=== PATIENT | male | born 1955 | race Caucasian/White ===

== ENCOUNTER 2018-11-01 13:14 | Inpatient (IN) ==
[2018-11-01] MEDS ORDERED: ZOFRAN IV ONE (13:42)
[2018-11-01] MEDS ORDERED: NS 1,000 ML IV ONE ×2 (13:42→15:52)
[2018-11-01 14:02] LABS: BASO# 0.02 X1000 (0.0-0.2); BASO% 0.2 % (0.0-0.8); EOS# 0.14 X1000 (0.0-0.7); EOS% 1.4 % (0.0-10.0); HEMATOCRIT 40.2 % (42.0-52.0); HEMOGLOBIN 13.3 g/dL (14.0-18.0); IMM GRAN# 0.05 X1000 (0.0-0.04); IMM GRAN% 0.5 % (0.0-0.5); LYMPH# 1.73 X1000 (1.2-3.4); LYMPH% 16.7 % (20.5-51.1); MCH 29.6 PG (27-31); MCHC 33.1 g/dL (33-37); MCV 89.5 FL (81-99); MONO# 0.88 X1000 (0.11-0.59); MONO% 8.5 % (1.7-9.3); MPV 10.7 FL (7.4-10.4); NEUT# 7.54 X1000 (1.4-6.5); NEUT% 72.7 % (42.2-75.2); PLT 195 X1000 (130-400); RBC 4.49 XMIL (4.7-6.1); RDW 16.4 % (11.5-14.5); WBC 10.36 X1000 (4.8-10.8)
[2018-11-01 14:09] LABS: INR 1.15; PROTIME 14.9 Seconds (11.0-16.0)
[2018-11-01 14:10] LABS: PTT 27.9 Seconds (22.3-41.8)
[2018-11-01 14:20] LABS: ALB/GLOB RATIO 2.1; ALBUMIN 4.4 g/dL (3.5-5.0); CALCIUM 8.8 mg/dL (8.8-10.2); CREATININE 2.1 mg/dL (0.7-1.2); POTASSIUM 4.2 mmol/L (3.5-5.1); TOTAL BILIRUBIN 2.38 mg/dL (0.20-1.00); TOTAL PROTEIN 6.5 g/dL (6.3-8.3)
--- NOTE | 2018-11-01 14:55 | Diag Imaging Result Doc PS360 ---
EXAM: CT HEAD/C-SPINE W/O CONTRAST INDICATION: syncope TECHNIQUE: This exam was performed using automated exposure control, adjustment of mA or kV according to patient size, and/or use of iterative reconstruction technique. COMPARISON: None. FINDINGS: Head: There is no definite acute infarct given the limited sensitivity of CT versus MRI. There is no discrete intracranial mass, mass effect, or intracranial hemorrhage. The surrounding soft tissues are essentially unremarkable. The calvaria is intact. C-spine: There are small uncovertebral osteophytes are several levels, probably most significant at C5-6 on the left where there is moderate narrowing of the left neuroforamen. Otherwise, there is no discrete fracture, subluxation, or intrinsic osseous lesion. Review of the surrounding soft tissues reveals a large nodule arising from the left thyroid lobe that extends into the upper mediastinum measuring up to 3.8 x 4.1 cm axially. Consider nonemergent ultrasound follow-up. IMPRESSION: 1.No evidence of acute intracranial pathology. 2.Mild cervical spine degenerative changes as described. No evidence of fracture or other definite acute C-spine injury. 3.Incidental prominent nodule at the lower pole of the left thyroid lobe. Electronically signed by Eriberto Villalobos 11/01/2018 2:52 PM
--- NOTE | 2018-11-01 15:03 | Diag Imaging Result Doc PS360 ---
EXAM: CT MAXILLOFACIAL(SINUS) W/O CO INDICATION: syncope with facial trauma TECHNIQUE: COMPARISON: CT head dated 06/08/2017 FINDINGS: There are a few tiny gas droplets in the soft tissues overlying the nasal bones suggesting an abrasion. There is subtle irregularity involving the right nasal bone and the nasal septum that was not present on the previous head CT from 2018 suggesting subtle fractures. No other facial bone fractures are appreciated. Specifically, the pterygoid plates, orbits, zygomatic arches, and mandible are intact. The mandible is normally located. There is mild mucosal thickening at the floors of maxillary sinuses bilaterally. No intrasinus hemorrhage is identified. The mastoid air cells are clear. IMPRESSION: Suggestion of subtle fractures of the right nasal bone and bony nasal septum with very little displacement. Electronically signed by Eriberto Villalobos 11/01/2018 3:01 PM
--- NOTE | 2018-11-01 15:07 | Diag Imaging Result Doc PS360 ---
EXAM: CHEST-2 VIEWS INDICATION: syncope TECHNIQUE: 2 views COMPARISON: 06/24/2018 FINDINGS: The lungs are grossly clear. There is no discrete pleural fluid collection or pneumothorax. There is stable cardiomegaly. Central vasculature is unremarkable. IMPRESSION: Cardiomegaly but no evidence of acute chest pathology. Electronically signed by Eriberto Villalobos 11/01/2018 3:05 PM
[2018-11-01] MEDS ORDERED: ZOFRAN IV PRN (15:52)
--- NOTE | 2018-11-01 15:52 | PROVIDER DOCUMENTATION ---
This chart was entered by Adry Ga Scribe, acting as scribe for Giovanna Grijalva MD. HPI-General Adult - General Chief Complaint: Syncope Stated Complaint: FALL, SYNCOPE Time Seen by Provider: 11/01/18 13:17 Source: patient, family (sister), EMS Allergies/Adverse Reactions: Patient Allergies Allergy/AdvReac Type Severity Reaction Status Date / Time No Known Allergies Allergy Verified 11/01/18 13:23 Home Medications: Home Medication List Medication Instructions Recorded Confirmed Last Taken Type Metformin HCl [Metformin HCl ER] 500 mg PO BID 02/27/16 11/01/18 11/01/18 History Metoprolol Succinate E.r. [Toprol 50 mg PO QAM 02/27/16 11/01/18 11/01/18 History Xl] Insulin Glargine [Lantus] 30 unit SUBQ QAM 03/30/16 11/01/18 11/01/18 History Acetaminophen [Tylenol] 650 mg PO Q6H PRN PRN tablet 06/12/17 11/01/18 2 Months Ago Rx ~08/31/18 Amlodipine [Norvasc] 10 mg PO BID tablet 04/11/18 11/01/18 Unknown Rx Dicyclomine [Bentyl] 10 mg PO TID AC 11/01/18 11/01/18 11/01/18 History Furosemide [Lasix] 20 mg PO DAILY 11/01/18 11/01/18 11/01/18 History Glipizide 5 mg PO QAM 11/01/18 11/01/18 11/01/18 History Meloxicam [Mobic] 15 mg PO QAM 11/01/18 11/01/18 11/01/18 History Naproxen [Naprosyn] 500 mg PO BID 11/01/18 11/01/18 11/01/18 History Quetiapine Fumarate 25 mg PO QHS 11/01/18 11/01/18 1 Day Ago History ~10/31/18 Ranitidine [Zantac] 150 mg PO BID 11/01/18 11/01/18 11/01/18 History Spironolactone 25 mg PO QAM 11/01/18 11/01/18 11/01/18 History - History of Present Illness -Gen Adult Nature of Presenting Problems: 63 yowm presents to the ed via ems after syncopal episode at home falling and hitting his face on the floor. pt has abrasions noted to bridge of nose. per ems when aos pt had BP systolic 62 and had ekg changes in route to hospital. pt sts prior to sycope he had chest pain about 0900am and just before syncope pt was diaphoretic. pt is in c-collar on exam placed by ems pt after exam had episode of n/v Location of Pain/Injury: reports: face (nose) Pain Radiation: reports: no radiation Quality of Pain: reports: aching Severity: reports: mild Onset/Duration: reports: just prior to arrival Timing: reports: improving Context/Activities at Onset: reports: light activity Modifying Factors: worse with: palpation Associated Symptoms: reports: diaphoresis, EENT symptoms (abrasion noted to bridge of nose), nausea, syncope, vomiting. denies: back/neck pain, chest pain, cough, headaches, shortness of breath, weakness Similar Symptoms Previously?: No Recently seen or treated by another doctor?: No Review of Systems - Adult - REVIEW OF SYSTEMS - ADULT Constitutional: denies: chills, fever Eyes: reports: no symptoms reported Ears, Nose, Mouth & Throat: reports: see HPI, nose pain Cardiovascular: reports: see HPI, chest pain, syncope Respiratory: denies: cough, shortness of breath, wheezing Gastrointestinal: reports: see HPI, nausea, vomiting Genitourinary: reports: no symptoms reported Musculoskeletal: denies: back pain, neck pain Integumentary: reports: no symptoms reported Neurological: reports: syncope. denies: dizziness/vertigo, headache/migraines, tremors Psychiatric: reports: no symptoms reported Endocrine: reports: no symptoms reported Hematologic/Lymphatic: reports: no symptoms reported Allergic/Immunologic: reports: no symptoms reported All Other Systems: Reviewed and Negative Past History - Adult - PAST MEDICAL HISTORY-ADULT Review of Records: reports: Old Records Reviewed, Nursing Assessment Review, Medications Reviewed, Social history reviewed & non-contributory. Major Childhood Illnesses: reports: denies history Cardiovascular: reports: CHF, HTN, hyperlipidemia Respiratory: reports: denies history Gastrointestinal: reports: denies history Genitourinary: reports: denies history Musculoskeletal: reports: denies history Hand Dominance: Right Handed Neurological: reports: denies history Psychiatric: reports: denies history Endocrine/Immune: reports: Diabetes Other Conditions: reports: denies history - PRIOR SURGERIES/PROCEDURES Surgical/Procedure History: reports: orthopedic (extremity) - IMMUNIZATION STATUS Childhood Immunizations: See Nurse Assessment Flu Vaccine: See Nurse Assessment - FAMILY HISTORY Family History: reviewed, not pertinent - SOCIAL HISTORY Smoking: denies Substance Use: denies Living Situation: family Physical Exam-General - PHYSICAL EXAM-ADULT Initial Vital Signs Reviewed: Yes - CONSTITUTIONAL General Appearance: alert, mild distress, obese - EYES Eyes: PERRL/EOMI, pink conjunctivae - HEAD, EARS, NOSE, MOUTH & THROAT HENMT: moist mucous membranes, dental decay, other (nose pain with abrasion noted to bridge of nose) - NECK Neck: normal inspection, other (in c-collar) - RESPIRATORY Respiratory: chest non-tender, lungs clear, normal breath sounds - CARDIOVASCULAR Cardiovascular: normal peripheral pulses, regular rate, rhythm - GASTROINTESTINAL (ABDOMEN) Abdominal Exam: normal bowel sounds, non tender, soft - MUSCULOSKELETAL Back Exam: normal inspection, no CVA tenderness, no vertebral tenderness Extremity: normal range of motion, normal capillary refill, pelvis stable - SKIN Integumentary: normal color, normal turgor, warm/dry - NEUROLOGIC Neurologic: grossly normal - PSYCHIATRIC Psych/Mental Status: normal mood/affect, normal thought content, normal thought process, oriented x 3 Progress - PLAN OF CARE/RESULTS Progress/Plan/Lab Results: Vital Signs - 8 hr 11/01/18 13:16 Temperature 97.6 F Pulse Rate 96 H Respiratory Rate 18 Blood Pressure 136/86 O2 Sat by Pulse Oximetry 97 Laboratory Results - last 24 hr 11/01/18 13:28 POC Glucose 80 D Result Diagrams: 11/01/18 13:25 11/01/18 13:25 - REASSESSMENT Reassessment #1 Time Reassessed: 15:01 (dr grijalva at bedside) Status: improving Reassessment Comment: heart score 4 - EKG 1 Time of EKG reading by physician:: 13:16 EKG Read and Signed by:: Giovanna Grijalva EKG Interpretation (*Must complete 3 of following elements*): Abnormal Rate: 96 Rhythm: nsr [place]: normal MA Interval: normal ST Wave: normal Prior EKG Comparison: unchanged from prior (06/2017) Comments: nonspoecific intravenetricular block - XRAY 1 XRAY: Bilateral XRAY Study: Chest Impression: See EMR Report (EXAM: CHEST-2 VIEWS INDICATION: syncope TECHNIQUE: 2 views COMPARISON: 06/24/2018 FINDINGS: The lungs are grossly clear. There is no discrete pleural fluid collection or pneumothorax. There is stable cardiomegaly. Central vasculature is unremarkable. IMPRESSION: Cardiomegaly but no evidence of acute chest pathology. Electronically signed by Eriberto Villalobos 11/01/2018 3:05 PM 11/01/18 1505 Interpreting Physician: Eriberto Villalobos MD Dictated Date/Time: 11/01/18 1504 cc: Giovanna Grijalva MD; Terrance Conroy MD) - CT/MRI 1 CT Study: Cervical Spine, Head Impression: See EMR Report (EXAM: CT HEAD/C-SPINE W/O CONTRAST INDICATION: syncope TECHNIQUE: This exam was performed using automated exposure control, adjustment of mA or kV according to patient size, and/or use of iterative reconstruction technique. COMPARISON: None. FINDINGS: Head: There is no definite acute infarct given the limited sensitivity of CT versus MRI. There is no discrete intracranial mass, mass effect, or intracranial hemorrhage. The surrounding soft tissues are essentially unremarkable. The calvaria is intact. C-spine: There are small uncovertebral osteophytes are several levels, probably most significant at C5-6 on the left where there is moderate narrowing of the left neuroforamen. Otherwise, there is no discrete fracture, subluxation, or intrinsic osseous lesion. Review of the surrounding soft tissues reveals a large nodule arising from the left thyroid lobe that extends into the upper mediastinum measuring up to 3.8 x 4.1 cm axially. Consider nonemergent ultrasound follow-up. IMPRESSION: 1.No evidence of acute intracranial pathology. 2.Mild cervical spine degenerative changes as described. No evidence of fracture or other definite acute C-spine injury. 3.Incidental prominent nodule at the lower pole of the left thyroid lobe. Electronically signed by Eriberto Villalobos 11/01/2018 2:52 PM 11/01/18 1452 Interpreting Physician: Eriberto Fulton MD Dictated Date/Time: 11/01/18 1444 cc: Giovanna Grijalva MD; Terrance Conroy MD) 2 CT Study: Facial Bones Impression: See EMR Report (EXAM: CT MAXILLOFACIAL(SINUS) W/O CO INDICATION: syncope with facial trauma TECHNIQUE: COMPARISON: CT head dated 06/08/2017 FINDINGS: There are a few tiny gas droplets in the soft tissues overlying the nasal bones suggesting an abrasion. There is subtle irregularity involving the right nasal bone and the nasal septum that was not present on the previous head CT from 2018 suggesting subtle fractures. No other facial bone fractures are appreciated. Specifically, the pterygoid plates, orbits, zygomatic arches, and mandible are intact. The mandible is normally located. There is mild mucosal thickening at the floors of maxillary sinuses bilaterally. No intrasinus hemorrhage is identified. The mastoid air cells are clear. IMPRESSION: Suggestion of subtle fractures of the right nasal bone and bony nasal septum with very little displacement. Electronically signed by Eriberto Villalobos 11/01/2018 3:01 PM 11/01/18 1501 Interpreting Physician: Eriberto Villalobos MD Dictated Date/Time: 11/01/18 8898 cc: Giovanna Grijalva MD; Terrance Conroy MD) - CONSULTS/PCP/HOSPITALIST Notification #1 *Consult/PCP/Hospitalist*: dr hinton construction project manager for dr conroy Time Discussed: 15:47 Consult Disposition: Admit Departure - Departure Date of Disposition Decision: 11/01/18 Time of Disposition Decision: 15:45 DIAGNOSIS: Syncope Qualifiers: Syncope type: unspecified Qualified Code(s): R55 - Syncope and collapse Nasal fracture Qualifiers: Encounter type: initial encounter Fracture type: closed Qualified Code(s): S02.2XXA - Fracture of nasal bones, initial encounter for closed fracture Disposition: ADMITTED INPATIENT 09 Certified Medical Emergency: Emergent Condition: Stable Referrals and Follow-Ups: Terrance Conroy MD [Primary Care Provider] - - Critical Care Note This patient required my direct & personal management of CC.: No Attestation - Physician/ [place] Attestation Patient care was provided by Advanced Practice Provider:: No The physician spent face to face time with patient:: Yes Advanced Practice Provider documentation review:: Supervising physician onsite and consulted in the evaluation and care of this patient. The physician did have a face to face encounter with the patient. This chart was documented by the olaf scribe, (Adry Ga Scribe) and accurately reflects the services I performed and decisions made by me, Giovanna Grijalva MD, as attested by the provider's signature.
[2018-11-01] MEDS: NS 1,000 ML IV SCH (16:44)
--- NOTE | 2018-11-01 17:03 | HISTORY AND PHYSICAL ---
CHIEF COMPLAINT: Recurrent syncope second episode since 3 weeks ago. HISTORY OF PRESENT ILLNESS: This is a 63-year-old, disabled, white, male patient of Dr. Christine who came in second time with syncope at his friend's house. Brought in by ambulance. En route his blood pressure was 60. This is the second episode. He had a head injury. Emergency room workup was reviewed. He had a nasal bone fracture. Denies any headache or any focal symptoms. He was admitted 3 weeks ago in [facility]. The details were not known. Dr. Christine has requested the reports. He was basically admitted to the hospital with recurrent syncope. The patient was also here on 04/11/2018 for diverticulitis and history of congestive heart failure with echocardiography reported on 03/10/2018 with global hypokinesis with severe reduction of EF 10 percent to 15 percent. At this time his workup was not clear about ischemic heart disease. Cardiology consult was obtained. Per EKG on 04/11/2018, he has a left bundle branch block. Anyhow, for all these reasons he has been hospitalized. PAST MEDICAL HISTORY: 1. Congestive heart failure due to severe systolic dysfunction, etiology to be determined. 2. Left bundle branch block. 3. Diverticulosis. 4. Hypertension. 5. Type 2 diabetes. 6. Borderline mentally retarded. 7. Acid reflux disease. 8. History of gout. PAST SURGICAL HISTORY: Right knee surgery and jaw surgery when he was a kid. MEDICATIONS: Metformin 500 p.o. b.i.d., metoprolol 50 in the morning, Lantus 30 units subq in the morning, amlodipine 10 p.o. b.i.d., Lasix 20 daily, glipizide 5 in the morning, Mobic 15 in the morning, naproxen 500 p.o. b.i.d., quetiapine 25 at bedtime, Aldactone 25 daily, and Zantac 150 p.o. b.i.d. ALLERGIES: Not known. SOCIAL HISTORY: He is . One kid. Lives in [place]. No smoking. No alcohol. FAMILY HISTORY: Noncontributory. REVIEW OF SYSTEMS: HEENT: No headache. No vision problem. Injury to the nose. No neck pain. Cardiopulmonary: No chest pain. No shortness of breath, PND, orthopnea. Gastrointestinal: No nausea, vomiting, abdominal pain. GENITOURINARY: No history of hesitancy, frequency, dysuria. No BPH symptoms. Musculoskeletal: No swelling of legs. No joint pain. Neurologic: No focal symptoms or weakness. PHYSICAL EXAMINATION: VITAL SIGNS: His hemodynamics are stable. He is tachycardic. Temperature is 97.6 degrees. HEENT: Atraumatic, normocephalic. Pupils equal and reactive to light. He had a bandage applied for the nose. Tongue is in midline. NECK: Supple. No lymphadenopathy. CHEST: Bilateral air entry. Distant heart sounds. Tachycardic. ABDOMEN: Belly is soft, nontender. No masses palpable. MUSCULOSKELETAL: No peripheral edema or cyanosis. NEUROLOGIC: No obvious neurological deficits noted. INVESTIGATIONS: CBC: White cell count 10, hematocrit 40, platelets 195,000. PT 14, INR 1.1. Sodium 142, potassium 4.2, BUN 35, creatinine 2.1, bilirubin 2.3. Cardiac enzymes were normal. Maxillofacial CT: A subtle fracture of the right nasal bone. CT of the head and cervical spine: No evidence of acute intracranial pathology and mild DJD changes noted. Incidental prominent nodule left lower pole of left thyroid. ASSESSMENT AND PLAN: This is a 63-year-old white male admitted to the hospital with recurrent syncope x2, hypotensive, and with abnormal EKG with a left bundle with chronic systolic heart failure with ejection fraction 10 percent. PLAN: 1. Rule out cardiac arrhythmias. He probably needs inset insert loop monitor or 30-day loop monitor to rule out cardiac arrhythmias. Cardiology consult for Dr. Montaño. I do not know his workup for ischemic heart disease. 2. We will get the reports from [place]. 3. Carotid Dopplers. 4. For chronic kidney insufficiency with creatinine 2.1, we will give gentle hydration 50 mL/h in light of CHF. 5. For orthostatic blood pressure, bladder scan. 6. For type 2 diabetes on insulin with sliding scale with insulin coverage. 7. In light of chronic kidney disease I am going to stop his NSAIDS and Metformin. 8. Since the blood pressure is low, we will continue to hold on the blood pressure medicines. Discussed with the family at bedside, and we will get the reports from [facility] and closely monitor in telemetry. cc: Kaushik Capellan MD
[2018-11-01] MEDS ORDERED: HUMULIN R SUBQ SCH (21:00)
[2018-11-02 06:41] LABS: BASO# 0.01 X1000 (0.0-0.2); BASO% 0.1 % (0.0-0.8); EOS# 0.14 X1000 (0.0-0.7); EOS% 1.4 % (0.0-10.0); HEMATOCRIT 35.4 % (42.0-52.0); HEMOGLOBIN 11.7 g/dL (14.0-18.0); IMM GRAN# 0.03 X1000 (0.0-0.04); IMM GRAN% 0.3 % (0.0-0.5); LYMPH% 20.1 % (20.5-51.1); MCH 29.8 PG (27-31); MCHC 33.1 g/dL (33-37); MCV 90.1 FL (81-99); MONO# 0.87 X1000 (0.11-0.59); MONO% 8.7 % (1.7-9.3); MPV 10.7 FL (7.4-10.4); NEUT# 6.91 X1000 (1.4-6.5); NEUT% 69.4 % (42.2-75.2); PLT 150 X1000 (130-400); RBC 3.93 XMIL (4.7-6.1); RDW 16.1 % (11.5-14.5); WBC 9.96 X1000 (4.8-10.8)
[2018-11-02 07:18] LABS: ALB/GLOB RATIO 1.4; ALBUMIN 3.6 g/dL (3.5-5.0); CREATININE 2.1 mg/dL (0.7-1.2); MAGNESIUM 1.8 mg/dL (1.5-2.7); TOTAL BILIRUBIN 1.74 mg/dL (0.20-1.00); TOTAL PROTEIN 6.1 g/dL (6.3-8.3)
[2018-11-02] MEDS: NS 1,000 ML IV SCH ×2 (10:25→10:36)
--- NOTE | 2018-11-02 11:53 | PROGRESS NOTE ---
DATE: 11/02/2018 SUBJECTIVE: The patient has no syncope. His blood pressure is dropping below 100. I have not gotten the reports from [place]. REVIEW OF SYSTEMS: Recurrent syncope as described upon standing. OBJECTIVE: Vital signs: Blood pressure is 88/57, pulse 99. HEENT: Within normal limits. Neck: Supple. Chest: Clear to auscultation. Heart: Sounds are regular. No murmur. Abdomen: Belly is soft, nontender. Good bowel sounds. Neurologic: No neurological deficits. INVESTIGATIONS: CBC with white cell count 9.9, hematocrit 35, platelets 150,000. Sodium 138, potassium 4, chloride 102, BUN is 29, creatinine 2.1, glucose 127, bilirubin 1.74. ASSESSMENT AND PLAN: 1. Recurrent syncope x2, etiology to be determined. It could be orthostatic. 2. Congestive heart failure due to chronic systolic heart failure. EF around 10% to 20%, etiology to be determined. Since low ejection fraction, the patient may benefit down the line from low dose of DEYSI inhibitors. I will defer the treatment with Dr. Montaño. Since he is orthostatic, I will continue to hold the blood pressure medicine. 3. Chronic kidney failure. Check the bladder scan and continue IV fluids very judiciously. Follow up on BMP. 4. Check the carotid Doppler. Since he has a chronic kidney failure, I would hold on NSAIDs, metformin, Naprosyn and Mobic. We will also get the reports from [place], and Dr. Christine is going to follow up. Apparently, he also requested all the reports from [facility]. LEVEL OF DOCUMENTATION: 25 minutes. cc: Kaushik Capellan MD
--- NOTE | 2018-11-02 14:26 | CARDIOLOGY CONSULTATION ---
DATE: 11/02/2018 CHIEF COMPLAINT ON PRESENTATION: Two episodes of syncope in the last few weeks. HISTORY OF PRESENT ILLNESS: Mr. Barajas is a 63-year-old gentleman with a history of heart failure. He presented for evaluation of syncope that occurred apparently yesterday. He was seated in his recliner, got up to walk into the kitchen, broke out in a sweat, had a syncopal episode, hit the floor, and was out for around 2 minutes. There was no bowel or bladder incontinence. No other preceding symptoms. He felt relatively well after that event. He had one episode around 3 weeks ago that was fairly similar. No chest pain. PAST MEDICAL HISTORY: 1. He was seen by me in 03/2018, had an echocardiogram performed that demonstrated an EF of 10% to 15%. The patient did not follow up for further evaluations of that. 2. Hypertension. 3. Diabetes. 4. Cognitive delay. 5. Acid reflux. 6. Gout. 7. Chronic left bundle branch block. SOCIAL HISTORY: He is . No smoking. No tobacco or alcohol. FAMILY HISTORY: Significant for hypertension. REVIEW OF SYSTEMS: A 10-system review of systems is negative, except for those things mentioned in the HPI. PHYSICAL EXAMINATION: Vital Signs: He is afebrile. His heart rate is 92, blood pressure 108/69. General: He is no acute distress. HEENT: Oropharynx is moist. Poor dentition. He has a laceration over the bridge of his nose. His eye examination shows pink conjunctivae. White sclerae. Neck: No obvious thyromegaly or thyroid tenderness. Cardiovascular: He sounds to be in a regular rate and rhythm. He has no obvious murmurs. He has no S3. He has no lower extremity edema. His JVP is not elevated. Chest: Clear bilaterally. He has no increased work of breathing. Abdomen: Soft, nontender. PERTINENT DATA: His EKG was reviewed and shows sinus rhythm, left bundle. This is chronic and known. His chest x-ray shows cardiomegaly, but no evidence of acute chest pathology. His maxillofacial CT shows a subtle fracture of the right nasal bone and nasal septum with very little displacement. His lab data shows white count 9.9, hematocrit 35, his platelet count is 150,000. His sodium is 138, potassium 4, BUN 29, creatinine 2.1. Review of his creatinine seemed to show fluctuations in the 1.5 to 2.1 range since at least 06/2017. His total bilirubin is 1.7, his albumin is 3.6. ASSESSMENT: Mr. Barajas is a 63-year-old gentleman who presented with syncope. PLAN: The patient did not follow up for his ischemia evaluation after identification of an ejection fraction that was significantly reduced back in March. We will tentatively plan for cardiac catheterization on Saturday. I will initiate a low dose of Toprol at 25 mg daily. cc: MD Kaushik Montoya MD
[2018-11-02] MEDS: SEROQUEL PO SCH (21:17)
[2018-11-02] MEDS: ZANTAC PO SCH (21:17)
[2018-11-03] MEDS: NS 1,000 ML IV SCH (05:30)
[2018-11-03 06:43] LABS: WBC 8.54 X1000 (4.8-10.8)
[2018-11-03 06:44] LABS: BASO# 0.02 X1000 (0.0-0.2); BASO% 0.2 % (0.0-0.8); EOS# 0.26 X1000 (0.0-0.7); HEMATOCRIT 35.1 % (42.0-52.0); HEMOGLOBIN 11.6 g/dL (14.0-18.0); IMM GRAN# 0.02 X1000 (0.0-0.04); IMM GRAN% 0.2 % (0.0-0.5); LYMPH# 2.03 X1000 (1.2-3.4); LYMPH% 23.8 % (20.5-51.1); MCH 29.7 PG (27-31); MONO# 0.81 X1000 (0.11-0.59); MONO% 9.5 % (1.7-9.3); MPV 10.3 FL (7.4-10.4); NEUT% 63.3 % (42.2-75.2); PLT 158 X1000 (130-400); RDW 15.9 % (11.5-14.5)
[2018-11-03 07:20] LABS: ALB/GLOB RATIO 1.4; ALBUMIN 3.4 g/dL (3.5-5.0); CALCIUM 8.8 mg/dL (8.8-10.2); CREATININE 1.5 mg/dL (0.7-1.2); TOTAL BILIRUBIN 1.27 mg/dL (0.20-1.00); TOTAL PROTEIN 5.8 g/dL (6.3-8.3)
[2018-11-03] MEDS: TOPROL XL PO SCH (09:11)
[2018-11-03] MEDS: ZANTAC PO SCH ×2 (09:11→21:30)
--- NOTE | 2018-11-03 11:57 | PROGRESS NOTE ---
DATE: 11/03/2018 SUBJECTIVE: The patient is still on telemetry. The strips reported sinus with PVCs. No focal symptoms. He is still tachycardic. Blood pressure is getting stable. I appreciate Dr. Montaño's consult. REVIEW OF SYSTEMS: None reported. OBJECTIVE: Vital Signs: Tachycardic, and blood pressure is stable. Chest: Clear. Heart: Heart sounds are regular. Abdomen: Belly is soft, nontender, nonfocal. INVESTIGATIONS: CBC: White cell count 8.4, hematocrit 35, platelets 158,000. Sodium 143, potassium 4.0, BUN 23, creatinine 1.5. Bilirubin is coming down. ASSESSMENT AND PLAN: 1. Syncope. Rule out cardiac arrhythmias. 2. Orthostatic hypotension. Gentle hydration. 3. Chronic systolic heart failure. Waiting for catheterization. Follow up on carotid Dopplers. Dr. Montaño started on low dose of metoprolol. Based on the CT, further recommendations will be followed. The creatinine is coming down, and Dr. Christine is going to follow up in the morning. LEVEL OF DOCUMENTATION: 25 minutes. cc: Kaushik Capellan MD
--- NOTE | 2018-11-03 14:21 | CARDIOLOGY PROGRESS NOTE ---
DATE: 11/03/2018 SUBJECTIVE: Patient reports he is doing well. He has no shortness of breath. No chest pain. PHYSICAL EXAM: He is afebrile. Heart rate 106, blood pressure 102/76. I's and O's are positive. He has no output recorded.General: He is in no acute distress. Cardiovascular: He sounds to be in a regular rate and rhythm. He has no murmurs. He has no S3. He has no lower extremity edema. Chest: Clear bilaterally. He has no increased work of breathing. Abdomen: Soft, nontender. PERTINENT DATA: His white count is 8.5, hematocrit 35, platelet count is 158,000. Sodium 143, potassium 4, BUN 23, creatinine is 1.5 which is improved. ASSESSMENT: Mr. Hudson is a 63-year-old gentleman who presents with syncope, has a history of heart failure. PLAN: We will proceed with cardiac catheterization in the morning. Risks, benefits, and alternatives have been discussed. His creatinine is 1.5. His most recent checks have been in the high 1's to 2's so it seems like he is at his low. He was noted to be 1.5 back in June 2017 which appears to be at the lowest he has been since 2017 when he was 1.3. Presently, he is on a beta-joe. Proceed with cardiac catheterization in the morning. cc: MD Kaushik Montoya MD
--- NOTE | 2018-11-03 20:06 | Carotid Study ---
DATE: 11/01/2018 REQUESTING PHYSICIAN: Dr. Capellan. SPRAY APPLICATOR: Justen. INDICATIONS: Syncope. EQUIPMENT: [employer] Vivid E9 ultrasound system with a 9 L-D transducer. FINDINGS: Complete diagram of ultrasound images can be seen in patient's medical record. The peak systolic velocity in the right is noted to the distal internal carotid artery. It measures 50. The peak systolic velocity on the left side in internal system is 52 and is also located in the distal internal. Calculated internal carotid ratio on the right is 0.95 and left 0.87. Calculated stenosis on the right is 0% to 39% percent, left 0% to 39% percent. There appears to be atherosclerosis noted to bilateral carotid arteries, but at this time does not produce hemodynamically significant flow-limiting stenosis. Both vertebral arteries were antegrade flow. There is a greater than 4 cm incidentally noted nodule in left thyroid lobe which is incompletely visualized on this study. INTERPRETATION: By strict velocity criteria, no hemodynamically significant flow-limiting stenosis noted to bilateral carotid arteries. A 4 cm vascular nodule noted in the left thyroid lobe, which I would recommend getting a dedicated thyroid ultrasound to evaluate better. cc: MD Kaushik Kilgore MD
[2018-11-03] MEDS: SEROQUEL PO SCH (21:30)
[2018-11-04] MEDS: NS 1,000 ML IV SCH (04:00)
[2018-11-04 06:27] LABS: BASO# 0.03 X1000 (0.0-0.2); BASO% 0.3 % (0.0-0.8); EOS# 0.32 X1000 (0.0-0.7); EOS% 3.3 % (0.0-10.0); HEMOGLOBIN 11.9 g/dL (14.0-18.0); IMM GRAN# 0.05 X1000 (0.0-0.04); IMM GRAN% 0.5 % (0.0-0.5); LYMPH# 1.95 X1000 (1.2-3.4); LYMPH% 20.2 % (20.5-51.1); MCH 29.7 PG (27-31); MCHC 33.1 g/dL (33-37); MCV 89.8 FL (81-99); MONO# 0.84 X1000 (0.11-0.59); MONO% 8.7 % (1.7-9.3); MPV 10.7 FL (7.4-10.4); NEUT# 6.44 X1000 (1.4-6.5); PLT 174 X1000 (130-400); RBC 4.01 XMIL (4.7-6.1); RDW 15.9 % (11.5-14.5); WBC 9.63 X1000 (4.8-10.8)
[2018-11-04 06:37] LABS: INR 1.15; PROTIME 14.8 Seconds (11.0-16.0)
[2018-11-04 06:51] LABS: ALB/GLOB RATIO 1.4; ALBUMIN 3.6 g/dL (3.5-5.0); CREATININE 1.5 mg/dL (0.7-1.2); POTASSIUM 4.1 mmol/L (3.5-5.1); TOTAL BILIRUBIN 1.16 mg/dL (0.20-1.00); TOTAL PROTEIN 6.1 g/dL (6.3-8.3)
[2018-11-04] MEDS: TOPROL XL PO SCH (08:59)
[2018-11-04] MEDS: ZANTAC PO SCH ×2 (08:59→21:04)
--- NOTE | 2018-11-04 09:32 | PROGRESS NOTE ---
DATE: 11/04/2018 Mr. Hudson was admitted following a syncopal episode. He fractured his nasal bone. He was evaluated by toolsmith. He is going to get cardiac catheterization done today. His vital signs are stable except the heart rate is about 129. His standing blood pressure is somewhat definitely low. We will continue to watch him. -7 cc: Terrance Christine MD
[2018-11-04] MEDS ORDERED: HEPARIN 1000 UNITS/NS 2,000 UNIT/1,000 ML IV.SOLN ONE (10:01)
[2018-11-04] MEDS ORDERED: XYLOCAINE 1% ONE (10:02)
[2018-11-04] MEDS ORDERED: VERSED ONE (10:31)
[2018-11-04] MEDS ORDERED: MORPHINE ONE (10:31)
--- NOTE | 2018-11-04 12:41 | EKG Report ---
Test Performed on : 11/04/2018 12:33:03 PM Test Reason : post heart cath Blood Pressure : / mmHG Vent. Rate : 111 BPM Atrial Rate : 111 BPM P-R Int : 176 ms QRS Dur : 176 ms QT Int : 360 ms P-R-T Axes : 046 066 -14 degrees QTc Int : 489 ms Sinus tachycardia. Left bundle branch block Abnormal ECG When compared with ECG of 01-NOV-2018 13:16, No significant change was found Confirmed by Nate ROCHA, Julien Moffett ([id number]) on 11/05/2018 8:29:05 AM
[2018-11-04] MEDS ORDERED: LASIX IV ONE (12:45)
[2018-11-04 13:16] LABS: URINE SOURCE CATH
[2018-11-04 13:22] LABS: BILIRUBIN URINE NEGATIVE (NEGATIVE); BLOOD URINE TRACE (NEGATIVE); COLOR YELLOW; GLUCOSE URINE 150 mg/dL (NEGATIVE); KETONE URINE NEGATIVE (NEGATIVE); LEUKOCYTES URINE NEGATIVE (NEGATIVE); NITRITE URINE NEGATIVE (NEGATIVE); PROTEIN URINE 30 mg/dL (NEGATIVE); SP GRAVITY URINE 1.042; TURBIDITY URINE CLEAR (CLEAR); UROBILINOGEN URINE 3 mg/dL (NORMAL)
[2018-11-04 13:23] LABS: UR EPITHELIAL CELLS <10 /HPF (<10); URINE BACTERIA NEGATIVE /HPF; URINE RBC <10 /HPF (<10); URINE WBC <10 /HPF (<10)
[2018-11-04] MEDS ORDERED: LASIX IV SCH (13:30)
--- NOTE | 2018-11-04 14:12 | CARDIOLOGY PROGRESS NOTE ---
DATE: 11/04/2018 SUBJECTIVE: The patient underwent cardiac catheterization today. He has no complaints. He has no chest pain. PHYSICAL EXAMINATION: Vital Signs: Afebrile. Heart rate of 129, blood pressure 122/87. General: He is no acute distress. Cardiovascular: He sounds to be in a regular rhythm; it is tachycardic. He has no murmurs. He has no lower extremity edema. Respiratory: His chest is clear bilaterally. He has no increased work of breathing. Gastrointestinal: His abdomen is soft, nontender. PERTINENT DATA: His lab data shows a white count of 9.6, hematocrit 36, platelet count 174,000. His sodium is 143, potassium 4.1, BUN 26, creatinine is 1.5. His electrocardiogram today was reviewed by me and demonstrated what appears to be a sinus tach left bundle 111 beats per minute. ASSESSMENT: Mr. Hudson is a 63-year-old gentleman with a nonischemic cardiomyopathy. PLAN: He was given a dose of IV Lasix today already. I have started him on losartan 25 mg daily. He will continue on metoprolol. We will continue to treat him and check laboratories in the morning. Consider continued diuresis after that. I have started him on Lasix at 40 mg IV daily starting in the morning. He has presented with a complaint of syncope with a reduced EF. We may need to consider him for a LifeVest as an outpatient. cc: MD Terrance Montoya MD
[2018-11-04] MEDS: SEROQUEL PO SCH (21:04)
[2018-11-05] MEDS: TYLENOL PO PRN ×2 (04:21→09:31)
[2018-11-05 07:41] LABS: CALCIUM 9.1 mg/dL (8.8-10.2); CREATININE 1.5 mg/dL (0.7-1.2); POTASSIUM 3.8 mmol/L (3.5-5.1)
[2018-11-05] MEDS: ZANTAC PO SCH ×2 (08:45→20:03)
[2018-11-05] MEDS: TOPROL XL PO SCH (08:45)
[2018-11-05] MEDS: COZAAR PO SCH (08:46)
[2018-11-05] MEDS: LASIX IV SCH (08:46)
--- NOTE | 2018-11-05 09:27 | PROGRESS NOTE ---
DATE: 11/05/2018 SUBJECTIVE: Mr. Hudson is having some pain in the right foot. His general condition is about the same. He has known ischemic cardiomyopathy, but he had CAT study. I do not have the results of the CAT study; however, I was told that it was almost normal. He has reduced EF. His carotid flow studies had revealed presence of a thyroid nodule on the left side. We are going to try to get a thyroid ultrasound. We will x-ray the left foot today. cc: Terrance Christine MD
--- NOTE | 2018-11-05 09:49 | Diag Imaging Result Doc PS360 ---
FOOT 2 VIEWS LEFT - 11/05/2018 INDICATION: pain lt foot TECHNIQUE: COMPARISON: None FINDINGS: There is a degenerative heel spur at the Achilles tendon insertion. The bones are intact and normally aligned. Joint spaces and soft tissues are clear. IMPRESSION: Degenerative heel spur. Electronically signed by Cj Cardoso 11/05/2018 9:47 AM
--- NOTE | 2018-11-05 10:17 | ECHO REPORT ---
ORDER DATE: 11/05/2018 INDICATIONS: CHF. FINDINGS: 1. Right atrium appears normal in size on limited views of the right atrium. 2. Mild tricuspid regurgitation. The RV systolic pressure is 39. 3. Probable mild reduction in RV systolic function with probable normal RV size. 4. No significant pulmonic insufficiency. 5. Severe left atrial enlargement with a volume index of 66. 6. No mitral valve prolapse. Mild to moderate mitral regurgitation. 7. Dilated left ventricle with an end-diastolic dimension of 7.6. Normal wall thicknesses with a posterior and interventricular septal thickness of 0.8 cm each. Severe reduction in LV systolic function with an estimated EF of 10%. Optison contrast was used with no clear evidence of left ventricular thrombus. 8. Aortic valve opens well. There is mild to moderate aortic insufficiency. No stenosis. 9. Aorta appears normal in visualized segments. 10. No pericardial effusion seen. cc: MD Amalia Montoya PA Amit V. Vora, MD
--- NOTE | 2018-11-05 11:33 | Diag Imaging Result Doc PS360 ---
US SOFT TISSUE HEAD/NECK - 11/05/2018 INDICATION: thryoid nodule TECHNIQUE: Ultrasound thyroid COMPARISON: 11/01/2018 FINDINGS: There are two nodules at the inferior tip of the left lobe of the thyroid, as visualized on the prior CT. One is hypoechoic, and the lower one is hyperechoic. The hypoechoic nodule measures 2 x 1.9 x 1.3 cm. The lower nodule measures 2.9 x 3.1 x 2 cm. The right lobe measures 4.4 x 1.2 x 1.8 cm. The left lobe measures 5.5 x 2.6 x 2.7 cm. IMPRESSION: There are two dominant nodules at the far inferior tip of the left lobe of the thyroid within the thoracic inlet. Follow-up recommended. Electronically signed by Cj Cardoso 11/05/2018 11:30 AM
[2018-11-05] MEDS ORDERED: MAGNESIUM SULFATE 2 GM/S.W.I. 2 GM/50 ML IVPB IV ONE (16:40)
[2018-11-05] MEDS: SEROQUEL PO SCH (20:03)
[2018-11-06] MEDS: TYLENOL PO PRN ×3 (00:33→20:08)
--- NOTE | 2018-11-06 01:13 | CARDIAC CATH REPORT ---
PROCEDURE PERFORMED: Left heart catheterization with selective coronary angiography. Left ventriculography not performed due to elevated left ventricular end-diastolic pressure. INDICATIONS: Further evaluation of severe cardiomyopathy in patient with multiple risk factors for coronary atherosclerosis. ENTRY SITE: Right femoral artery. CATHETERS USED: A 5-Green[place]ic JL4 for imaging of left anterior descending coronary, 5-Green[place]ic JL5 for imaging left circumflex coronary, AR1 for imaging of right coronary, and angled pigtail for left heart catheterization. TECHNIQUE: After intravenous sedation with Versed and morphine, local anesthesia with lidocaine was applied over right femoral artery. Arterial access was established with placement of a 5- [place] sheath in the right femoral artery using modified Seldinger technique. Selective coronary angiography was performed. It should be noted that to adequately perform angiogram on left anterior descending coronary, a JL4 catheter was utilized due to very short left main coronary artery. Due to very short left main coronary artery, a 5-Green[place]ic JL5 catheter was utilized to perform angiography on left circumflex coronary due to subselection as result of short left main coronary artery. The right coronary was engaged with an AR1 catheter due to the anterior takeoff of the right coronary artery. Following coronary angiography, left heart catheterization was performed. Due to elevated left ventricular end-diastolic pressure, left ventricle left ventriculography was not performed. Upon completion of procedure, arterial sheath was removed from right femoral artery and hemostasis facilitated with manual pressure. The patient tolerated the procedure without apparent complications. FINDINGS: Angiography: 1. Left ventriculogram not performed. 2. Left main coronary: The left main coronary is angiographically normal. 3. Left anterior descending coronary: The left anterior descending coronary and its branches are free of significant coronary stenosis. 4. Left circumflex: The left circumflex coronary is the dominant vessel giving rise to posterior descending artery. The left circumflex coronary and its branches are free of significant coronary stenosis. 5. Right coronary: The nondominant right coronary arises from the anterior aspect of the aortic root. There is no significant stenosis in the right coronary. CONCLUSIONS: 1. Elevated left ventricular end-diastolic pressure of 31. 2. Left dominant coronary anatomy with no significant coronary obstructive lesions. cc: MD Terrance Riggs MD MTDD
--- NOTE | 2018-11-06 03:02 | CARDIOLOGY PROGRESS NOTE ---
DATE: 11/05/2018 SUBJECTIVE: Mr. Hudson reports he is doing well. He has no orthopnea, no lower extremity edema. Presently he has no pain complaints. No pain in his right groin catheterization site. OBJECTIVE: He is afebrile. His heart rates have been predominantly in the low 100s. His blood pressure is 103/71. His intake and output: I have somewhat limited intake data, but he diuresed 3.7 L yesterday. Generally he is in no acute distress.Cardiovascular: He is in a tachycardic and regular rhythm, consistent with sinus tachycardia noted on the monitor today. He has no murmurs. He has no lower extremity edema. Warm and well-perfused extremities. His chest exam sounds relatively clear. He has no increased work of breathing. His abdomen is soft and nontender. LABORATORY DATA: His sodium is 139, potassium 3.8, BUN 21, creatinine is 1.5. Creatinine of 1.5 has been stable since 11/03. His magnesium level is 1.6. ProBNP today is 7840. ASSESSMENT: Mr. Hudson is a 63-year-old gentleman with a nonischemic cardiomyopathy. Heart catheterization done yesterday. PLAN: We have added in Aldactone to start in the morning. He is on low-dose metoprolol as well as losartan, continuing to get Lasix 40 IV daily. He seems to be diuresing reasonably well. He has been arranged for an outpatient LifeVest, considering his nonischemic cardiomyopathy and episode of syncope, that is as of yet of undetermined etiology. Certainly there is a concern for ventricular arrhythmia causing this. cc: MD Terrance Montoya MD
[2018-11-06 08:01] LABS: CALCIUM 8.9 mg/dL (8.8-10.2); CREATININE 1.5 mg/dL (0.7-1.2); POTASSIUM 3.9 mmol/L (3.5-5.1)
[2018-11-06] MEDS: COZAAR PO SCH (08:06)
[2018-11-06] MEDS: ZANTAC PO SCH ×2 (08:06→20:09)
[2018-11-06] MEDS: TOPROL XL PO SCH (08:06)
[2018-11-06] MEDS: ALDACTONE PO SCH (08:06)
[2018-11-06] MEDS: LASIX IV SCH ×2 (08:07→20:09)
--- NOTE | 2018-11-06 11:48 | PROGRESS NOTE ---
DATE: 11/06/2018 Mr. Hudson is in about the same general condition. Foot x-ray shows presence of arthritis and calcaneal spurs. I told him that he is going to have pain, but we will put him on [place] 10 t.i.d. p.r.n. He has 2 cold nodules on the left area in the thyroid gland. We are going to get a surgical consult with Dr. Pineda about further management. cc: Terrance Christine MD
[2018-11-06] MEDS: NORCO-10 PO PRN (17:02)
[2018-11-06] MEDS: SEROQUEL PO SCH (20:09)
--- NOTE | 2018-11-06 21:52 | GENERAL SURGERY CONSULTATION ---
DATE: 11/06/2018 REQUESTING PHYSICIAN: Dr. Terrance Christine. REASON FOR CONSULTATION: Large thyroid mass. HISTORY OF PRESENT ILLNESS: This is a 63-year-old gentleman who initially was admitted for recurrent syncopal episodes. He had previously been admitted in [place] for this and apparently sustained a significant amount of trauma and did have a nasal fracture after his fall. He was brought here for evaluation, and it was noted during his complete workup after his fall that he had a relatively significant thyroid nodule. He subsequently had further imaging that showed multiple nodules in the lower aspect of his thyroid. These do extend down below the sternum. Given these, I was asked to evaluate the patient. The patient is without significant issues with swallowing at this time. It should be noted he did have an echocardiogram which showed an ejection fraction of 10%. PAST MEDICAL HISTORY: 1. Congestive heart failure secondary to severe systolic dysfunction. 2. Left bundle branch block. 3. History of diverticulosis. 4. History of hypertension. 5. Type 2 diabetes. 6. Borderline mental/cognitive defects. 7. Acid reflux disease. 8. History of gout. PAST SURGICAL HISTORY: Includes right knee surgery, jaw surgery. HOME MEDICATIONS: MAR reviewed. ALLERGIES: None. SOCIAL HISTORY: Lives in [place]. FAMILY HISTORY: Reviewed with patient, noncontributory. REVIEW OF SYSTEMS: A full 14 systems reviewed and negative unless specified in HPI. PHYSICAL EXAMINATION: Vital Signs: Patient is currently afebrile. His vital signs are stable. General: No acute distress. HEENT: Normocephalic, atraumatic. Pupils equal, round, reactive to light. Mucous membranes moist. Oropharynx benign. Neck: Supple. The thyroid does appear slightly enlarged on the left side, but the majority of this appears to be only noticeable when he swallows, and it seems to extend back under the sternum. Cardiovascular: Regular rate and rhythm. Lungs: Grossly clear. Abdomen: Soft, nontender, nondistended. Extremities: Moves all extremities. Neurologic: Grossly intact. Skin: No signs of jaundice. Vascular: All extremities perfused. LABORATORY: Reviewed. IMAGING: Reviewed. ASSESSMENT AND PLAN: A 63-year-old gentleman with a large substernal left thyroid nodule. 1. Thyroid nodule. At this time I would like to have the patient follow up with me in the office, where we will get a core needle biopsy of the area. Then we will figure out if there is any concern for malignancy. Unfortunately, I think the patient is not an ideal surgical candidate, given his ejection fraction of 10%. 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 We will need to make further recommendations once we actually have the biopsy, so I will have the patient follow up with me after discharge. 2. Multiple medical comorbidities, currently being managed by his primary care physician. cc: MD Terrance Kilgore MD
[2018-11-07] MEDS: NORCO-10 PO PRN ×3 (01:21→21:18)
--- NOTE | 2018-11-07 01:27 | CARDIOLOGY PROGRESS NOTE ---
DATE: 11/06/2018 SUBJECTIVE: Mr. Hudson reports that he is doing well. He has no orthopnea. No pain symptoms. OBJECTIVE: Vital Signs: He is afebrile. His heart rates continue to be elevated in the low 100s, at times up into the 110s. His blood pressure is 91/68. His I's and O's continue to be negative. He is negative another 1295 mL today. General: He is in no acute distress. Cardiovascular: He is in a regular rate and rhythm. He has no murmurs. He has no S3. He has no lower extremity edema. Chest: Exam sounds clear bilaterally. He has no increased work of breathing. Abdomen: Soft, nontender. PERTINENT LABORATORY DATA: Sodium is 137, potassium 3.9, BUN 21, creatinine is 1.5, proBNP is 4125 which is down from 7840. ASSESSMENT: Mr. Hudson is a 63-year-old gentleman with a nonischemic cardiomyopathy. PLAN: We will continue to diurese him. He is getting 40 of Lasix IV which I have increased to b.i.d.. He is on losartan, metoprolol and spironolactone, which have all been added to his regimen. For now we will continue on these medications. I will try to increase his Toprol slightly to 50 mg. Tentative plans for a LifeVest at the time of discharge secondary to his unclear etiology of syncope in the setting of a patient with a significant rule reduction in ejection fraction. cc: MD Terrance Montoya MD
[2018-11-07] MEDS: TYLENOL PO PRN (04:31)
--- NOTE | 2018-11-07 07:44 | Diag Imaging Result Doc PS360 ---
EXAM: CHEST-PORTABLE INDICATION: dyspnea TECHNIQUE: One view COMPARISON: 11/01/2018 FINDINGS: The lungs are grossly clear. There is no discrete pleural fluid collection or pneumothorax. There is stable cardiomegaly. Central vasculature is unremarkable. IMPRESSION: Cardiomegaly but no definite acute chest pathology. Electronically signed by Eriberto Villalobos 11/07/2018 7:42 AM
[2018-11-07 08:21] LABS: CALCIUM 9.2 mg/dL (8.8-10.2); CREATININE 1.4 mg/dL (0.7-1.2); MAGNESIUM 1.7 mg/dL (1.5-2.7); POTASSIUM 3.8 mmol/L (3.5-5.1)
[2018-11-07] MEDS: TOPROL XL PO SCH (08:52)
[2018-11-07] MEDS: LASIX IV SCH ×2 (08:52→21:14)
[2018-11-07] MEDS: COZAAR PO SCH (08:53)
[2018-11-07] MEDS: ALDACTONE PO SCH (08:53)
[2018-11-07] MEDS: ZANTAC PO SCH ×2 (08:53→21:14)
[2018-11-07] MEDS ORDERED: MAGNESIUM SULFATE 2 GM/S.W.I. 2 GM/50 ML IVPB IV ONE (11:53)
[2018-11-07] MEDS: HUMALOG SUBQ SCH ×3 (12:05→21:14)
[2018-11-07] MEDS: LANTUS INSULIN SUBQ SCH (12:06)
[2018-11-07] MEDS: SOLU-MEDROL IV SCH ×2 (12:06→22:35)
--- NOTE | 2018-11-07 14:37 | PROGRESS NOTE ---
DATE: 11/07/2018 Mr. Barajas is not doing well. He has swelling and inflammation over the right foot. Pulses well felt. X-ray is negative. I think it is gout. We are checking the uric acid. In the meantime, we will put him on Solu-Medrol and on account of his diabetes, we will put him on Lantus insulin as well as Humalog sliding scale. His ejection fraction is 10%. He has left-sided thyroid nodules. He was seen by Dr. Pineda, who suggested that he can do the nasal biopsy in the office and surgical decision will be decided later on. He is a big risk on account of only 10% ejection fraction. His physical exam today is unchanged. His proBNP is coming down. We are going to repeat his electrolytes, uric acid, magnesium, and put him on Lantus insulin as well as Solu- Medrol. cc: Terrance Christine MD
--- NOTE | 2018-11-07 20:25 | CARDIOLOGY PROGRESS NOTE ---
DATE: 11/07/2018 SUBJECTIVE: Mr. Hudson continues to be somewhat short of breath but reports overall since admission it seems to have improved. PHYSICAL EXAMINATION: His I's and O's appear to be negative over the last 3 days. His total net output is 3.3 L with a number of voids not measured. His vital signs show he is afebrile. Heart rates continue to be in the low 100s predominantly. His blood pressure is 101/65. General: No acute distress. Cardiovascular: He sounds to be in a regular rate and rhythm. He has no obvious murmurs. He has no lower extremity edema. He has no S3. His chest exam sounds relatively clear. He has no increased work of breathing. His abdomen is soft, nontender. PERTINENT DATA: Sodium is 134, potassium 3.8, his BUN is 25, creatinine is 1.4, his mag level is 1.7. His proBNP is 3621. ASSESSMENT: Mr. Hudson is a 63-year-old gentleman with a nonischemic cardiomyopathy. PLAN: From a cardiovascular standpoint he seems to be doing relatively stable. I believe he could be discharged tomorrow with LifeVest as per our plan but presently it seems he is going to stay the weekend per his primary care physician. We will continue diuresing him while he is here. I am not going to titrate his other medications as we will maintain stable doses of spironolactone, metoprolol and losartan for the time being. Laboratories checked and will be checked in the morning. His magnesium level was below 2, I will replete that. cc: MD Terrance Montoya MD
[2018-11-07] MEDS: SEROQUEL PO SCH (21:14)
[2018-11-08] MEDS: HUMALOG SUBQ SCH ×4 (06:05→21:19)
[2018-11-08 06:43] LABS: CALCIUM 9.2 mg/dL (8.8-10.2); MAGNESIUM 2.4 mg/dL (1.5-2.7); POTASSIUM 4.5 mmol/L (3.5-5.1)
[2018-11-08] MEDS: LASIX IV SCH ×2 (09:10→20:33)
[2018-11-08] MEDS: LANTUS INSULIN SUBQ SCH (09:10)
[2018-11-08] MEDS: TOPROL XL PO SCH (09:10)
[2018-11-08] MEDS: ALDACTONE PO SCH (09:10)
[2018-11-08] MEDS: ZANTAC PO SCH ×2 (09:10→20:33)
[2018-11-08] MEDS: COZAAR PO SCH (09:10)
[2018-11-08] MEDS: NORCO-10 PO PRN ×2 (09:16→20:33)
[2018-11-08] MEDS: SOLU-MEDROL IV SCH ×2 (11:58→23:17)
--- NOTE | 2018-11-08 14:39 | CARDIOLOGY PROGRESS NOTE ---
DATE: 11/08/2018 CHIEF COMPLAINT: Syncope. SUBJECTIVE: Mr. Hudson is feeling comfortable. He is eating his lunch. He has no complaints at this time although there is some pain in the leg. OBJECTIVE: Vital Signs: Blood pressure is 92/66, temperature 97.7, pulse 95, and respirations 18. General: He is awake. He seems to be comfortable. HEENT: Unremarkable. Respiratory: Chest is clear to auscultation and percussion. Cardiac: Heart sounds are regular and rhythmic. Abdomen: The abdomen is nontender. Extremities: The extremities show no obvious edema. Neurological: He follows commands and moves all extremities. LABORATORY DATA: Blood work: Sodium is 137, potassium 4.5, BUN 41, and creatinine 2. ProBNP is 6168 pg/mL. Telemetry shows no obvious arrhythmia. Heart catheterization done on 11/06/2018 showed no evidence of any significant coronary disease. IMPRESSION: 1. Patient with nonischemic dilated cardiomyopathy. 2. Suspect ventricular tachycardia as the mechanism for his syncope. 3. Hypertension. 4. Acid reflux. 5. Abnormal EKG with a left bundle branch block. RECOMMENDATIONS: At this time we will observe the patient in the hospital. He is going to be discharged with a LifeVest per Dr. Montaño's recommendation. Otherwise, no specific changes at this time. He seems to be stable. cc: MD Terrance Gonzáles MD
--- NOTE | 2018-11-08 14:47 | PROGRESS NOTE ---
DATE: 11/08/2018 SUBJECTIVE: The patient says he is feeling a bit better. Left foot still hurts some but has improved. Apparently he has gouty arthritis there, had an 11.3 uric acid level. OBJECTIVE: Vital Signs: Temperature of 97.9 degrees Fahrenheit. Respirations 20. Pulse 83, blood pressure 90/62. HEENT: Normocephalic. EOMS intact. PERRLA. Throat clear. Lungs: Clear to auscultation and percussion without rhonchi, rales, or wheezes. Heart: Regular rate and rhythm without murmurs, gallops, or friction rubs. Abdomen: Soft. Active bowel sounds. No organomegaly or tenderness. Neurologic: Exam intact grossly. He has no pedal edema. Left foot is warmer than the right. LABORATORY: For today shows sodium 137, potassium 4.5. Creatinine 2.0, BUN 41. Blood sugar 305. ProBNP 6168. ASSESSMENT: 1. Nonischemic cardiomyopathy. 2. Congestive heart failure. 3. Gouty arthritis. 4. Mild renal failure. PLAN: Continue support and continue treatment of gout. Heart failure. cc: MD Terrance Castro Jr, MD
[2018-11-08] MEDS: SEROQUEL PO SCH (20:33)
[2018-11-09] MEDS: HUMALOG SUBQ SCH ×4 (06:15→20:33)
[2018-11-09 06:37] LABS: CALCIUM 9.3 mg/dL (8.8-10.2); CREATININE 1.6 mg/dL (0.7-1.2); POTASSIUM 4.5 mmol/L (3.5-5.1)
[2018-11-09] MEDS: LASIX IV SCH ×2 (08:06→20:32)
[2018-11-09] MEDS: TOPROL XL PO SCH (08:06)
[2018-11-09] MEDS: COZAAR PO SCH (08:06)
[2018-11-09] MEDS: ALDACTONE PO SCH (08:06)
[2018-11-09] MEDS: ZANTAC PO SCH ×2 (08:06→20:32)
[2018-11-09] MEDS: LANTUS INSULIN SUBQ SCH (08:07)
[2018-11-09] MEDS: NORCO-10 PO PRN ×2 (08:11→20:32)
[2018-11-09] MEDS: SOLU-MEDROL IV SCH ×2 (12:04→23:21)
--- NOTE | 2018-11-09 13:27 | PROGRESS NOTE ---
DATE: 11/09/2018 SUBJECTIVE: The patient says he is feeling better. His left foot is not hurting very much at all now. He has had no shortness of breath or heart palpitations. OBJECTIVE: Vital signs: Blood pressure is stable at 130/92, pulse 100, 97.9 degrees Fahrenheit. Oxygen saturation is 99%. HEENT: Normocephalic. EOMs intact. PERRLA. Throat clear. Lungs: Clear to auscultation and percussion without rhonchi, rales, or wheezes. Heart: Regular rate and rhythm without murmurs, gallops, or friction rubs at this time. Abdomen: Soft. Active bowel sounds. No organomegaly or tenderness. Neurologic: Exam intact grossly. Extremities: Left foot has only mild tenderness at this point with his gouty arthritis. ASSESSMENT: 1. Syncope. 2. Dilated cardiomyopathy, nonischemic. 3. Suspicion of ventricular tachycardia as mechanism for syncope. 4. Hypertension. 5. Acid reflux. 6. Congestive heart failure. 7. Abnormal EKG with left bundle branch block. PLAN: Continue treatment. The patient seems to be improving. cc: MD Terrance Castro Jr, MD
[2018-11-09] MEDS: SEROQUEL PO SCH (20:32)
[2018-11-10 06:14] LABS: CALCIUM 9.2 mg/dL (8.8-10.2); CREATININE 1.4 mg/dL (0.7-1.2); POTASSIUM 4.4 mmol/L (3.5-5.1)
[2018-11-10] MEDS: HUMALOG SUBQ SCH ×4 (06:18→20:42)
[2018-11-10] MEDS: LANTUS INSULIN SUBQ SCH (08:56)
[2018-11-10] MEDS: LASIX IV SCH (08:56)
[2018-11-10] MEDS: SOLU-MEDROL IV SCH ×2 (08:56→20:43)
[2018-11-10] MEDS: COZAAR PO SCH (08:56)
[2018-11-10] MEDS: ZANTAC PO SCH ×2 (08:56→20:42)
[2018-11-10] MEDS: TOPROL XL PO SCH (08:56)
[2018-11-10] MEDS: ALDACTONE PO SCH (08:56)
[2018-11-10] MEDS: NORCO-10 PO PRN ×2 (08:57→20:51)
--- NOTE | 2018-11-10 09:25 | PROGRESS NOTE ---
DATE: 11/10/2018 Mr. Hudson is doing better. His inflammation on the left foot is better. We are going to taper his Solu-Medrol down. His BUN is way up elevated compared to creatinine, indicating the presence of dehydration. Both uric acid elevation and dehydration are the side effects of the diuretic therapy he is getting for his congestive heart failure. Will give him some IV fluids today. Overall condition is guarded. We are going to taper the Solu-Medrol down to some extent. cc: Terrance Christine MD
[2018-11-10] MEDS: POTASSIUM CHLORIDE 10 MEQ in 1/2 NS 1,000 ML IV SCH (09:42)
[2018-11-10] MEDS: DUONEB (A & A) INH PRN ×2 (10:43→15:49)
[2018-11-10] MEDS ORDERED: HUMALOG SUBQ ONE (12:09)
--- NOTE | 2018-11-10 19:04 | CARDIOLOGY PROGRESS NOTE ---
DATE: 11/10/2018 SUBJECTIVE: Mr. Hudson denies any complaints of orthopnea. He has had no chest pain. PHYSICAL EXAMINATION: Vital signs: The patient is afebrile. His heart rate is 85. His most recent blood pressure is 132/86. His I's and O's continue to be negative. His total output is negative 7.5 L with 4 voids not measured. Generally, he is in no acute distress. Cardiovascular: He sounds to be in a regular rate and rhythm. He has no murmurs. He has no S3. He has no lower extremity edema. Chest: Exam sounds clear. He has no increased work of breathing. Abdomen: His abdomen is soft, nontender. PERTINENT DATA: His BUN and creatinine are 52 and 1.4, which are improved from the 8th. Notably he did have an elevation of his creatinine to 2.0 on the 7th. ASSESSMENT: Mr. Hudson is a 63-year-old gentleman who has a nonischemic cardiomyopathy and syncope. PLAN: He was set up for a LifeVest. It is present in his room. We will continue on current medications with the exception of swapping him to an oral diuretic. He is currently on losartan, Toprol and spironolactone. We will continue on this regimen. cc: MD Terrance Montoya MD
[2018-11-10] MEDS: SEROQUEL PO SCH (20:42)
[2018-11-11] MEDS: POTASSIUM CHLORIDE 10 MEQ in 1/2 NS 1,000 ML IV SCH (04:31)
[2018-11-11 06:06] LABS: CALCIUM 9.3 mg/dL (8.8-10.2); CREATININE 1.3 mg/dL (0.7-1.2); POTASSIUM 4.3 mmol/L (3.5-5.1)
[2018-11-11] MEDS: HUMALOG SUBQ SCH ×2 (06:10→12:06)
[2018-11-11 07:45] VITALS: BP 93/69
[2018-11-11] MEDS ORDERED: LASIX PO SCH (09:00)
[2018-11-11] MEDS: SOLU-MEDROL IV SCH (09:17)
[2018-11-11] MEDS: ALDACTONE PO SCH (09:17)
[2018-11-11] MEDS: LANTUS INSULIN SUBQ SCH (09:18)
[2018-11-11] MEDS: ZANTAC PO SCH (09:18)
[2018-11-11] MEDS: COZAAR PO SCH (09:18)
[2018-11-11] MEDS: TOPROL XL PO SCH (09:18)
[2018-11-11] MEDS: NORCO-10 PO PRN (09:23)
--- NOTE | 2018-11-11 15:41 | DISCHARGE SUMMARY ---
ADMISSION DATE: 11/03/2018 DISCHARGE DATE: 11/11/2018 DIAGNOSIS OF ADMISSION: Mr. Melissa who is a 63-year-old white gentleman, was admitted with a diagnosis of syncope, patient fell at home. He was admitted to rule out cardiac arrhythmias and for further cardiac workup. LABORATORY DATA: In the hospital chest x-ray revealed presence of cardiomegaly, otherwise it was unremarkable. CT scan of the head and cervical spine did not show any evidence of acute intracranial pathology. Mild cervical degenerative changes were noted. A thyroid nodule was noted on the left side. Maxillofacial CT was also performed which revealed a fracture of the right nasal bone and bony nasal septum with very little displacement. He had an echocardiogram performed which revealed ejection fraction of only 10%. He had dilated left ventricle as well as left atrial enlargement with mild to-moderate mitral regurgitation. Cardiac cath studies did not reveal any arterial blockage. However, he had severe dilated cardiomyopathy. Carotid noted flow studies was grossly negative. Two dominant thyroid nodules were noted on the left side, one was within the thorax. COURSE IN THE HOSPITAL: He was seen in the emergency room and admitted. He was found to have severe cardiomyopathy with gross congestive heart failure. He had 2 thyroid nodules. Surgical consult was obtained. However, outpatient observation was noted and possible needle biopsy considering his condition surgery was not planned, certainly at not at this time. The vault installer had seen him and LifeVest was advised. He had some episode of gout involving the right foot, possibly because of the large diuretic therapy. DISPOSITION: He will be discharged today. cc: Terrance Christine MD
== END 2018-11-11 12:38 | disposition home health service (06) | DRG 287 ==
LOC: SUPCPDRO → ED 13:14 → 3N 16:12 → INTOOBSV 16:12 → 2N 11-04 12:00
PROVIDERS: ADMIT Internal Medicine; ATTEND Internal Medicine